=== PATIENT | male | born 1960 | race Caucasian/White ===

== ENCOUNTER 2020-07-10 13:20 | Day surgery (SDC) | payer OTHER ==
[2020-07-10] MEDS ORDERED: Sensorcaine 0.25% 10 ML IJ ONE (13:21)
[2020-07-10] MEDS ORDERED: Xylocaine 1% Vial 30 ML PF IJ ONE (13:21)
[2020-07-10] MEDS ORDERED: Ketamine HCl 50 MG/ML ONE (15:10)
[2020-07-10] MEDS ORDERED: DIPRIVAN 200 MG/20 ML IV ONE (15:10)
[2020-07-10] MEDS ORDERED: Lactated Ringers 1,000 ML IV ONE (15:16)
--- NOTE | 2020-07-10 16:23 | XRAY ---
Indication: Right lumbar sympathetic nerve block. Intraoperative fluoroscopy provided for 56 seconds. 4 digital spot images submitted for interpretation demonstrates right posterior needle with the tip projecting just anterior to mid lumbar spine, probably L2-L3. Small amount of contrast injected for needle tip placement. Correlate with intraoperative findings as reported.
--- NOTE | 2020-07-10 16:38 | XRAY ---
56 seconds of fluoroscopy was used in surgery for a right lumbar sympathetic nerve block.
== END 2020-07-10 15:42 | disposition home or self-care (01) ==
LOC: SDC-PAIN 13:20
PROVIDERS: ATTEND Psychiatry & Neurology Pain Medicine
DX: G90.521 Complex regional pain syndrome I of right lower limb (principal); Z79.899 Other long term (current) drug therapy
CPT/HCPCS: 64520; 72100; 77002; J2001; J2704; Q9966

== ENCOUNTER 2020-09-11 10:49 | Day surgery (SDC) | payer OTHER ==
[2020-09-11] MEDS ORDERED: Xylocaine 1% Vial 30 ML PF IJ ONE (10:50)
[2020-09-11] MEDS ORDERED: Sensorcaine 0.25% 10 ML IJ ONE (10:50)
--- NOTE | 2020-09-11 13:46 | XRAY ---
Indication: Right lumbar sympathetic nerve block. Intraoperative fluoroscopy provided for 46 seconds. 6 digital spot images submitted for interpretation demonstrates right posterior needle with the tip projecting just anterior to mid lumbar spine, probably L2-L3. Small amount of contrast injected for needle tip placement. Correlate with intraoperative findings/report.
--- NOTE | 2020-09-11 14:16 | XRAY ---
46 seconds of fluoroscopy was used in surgery for a right lumbar sympathetic nerve block.
[2020-09-11] MEDS ORDERED: Lactated Ringers 1,000 ML IV ONE (16:20)
== END 2020-09-11 13:47 | disposition home or self-care (01) ==
LOC: SDC-PAIN 10:49
PROVIDERS: ATTEND Psychiatry & Neurology Pain Medicine
DX: G90.521 Complex regional pain syndrome I of right lower limb (principal); M19.90 Unspecified osteoarthritis, unspecified site; C62.90 Malignant neoplasm of unspecified testis, unspecified whether descended or undescended; G57.60 Lesion of plantar nerve, unspecified lower limb; Z79.899 Other long term (current) drug therapy
CPT/HCPCS: 64520; 72100; 77002; 77003; J2001; Q9966

== ENCOUNTER 2021-06-12 13:45 | Day surgery (SDC) | payer OTHER ==
[2021-06-12] MEDS ORDERED: Xylocaine 1% Vial 30 ML PF IJ ONE (13:46)
[2021-06-12] MEDS ORDERED: Lactated Ringers 1,000 ML IV ONE (15:15)
[2021-06-12] MEDS ORDERED: DIPRIVAN 200 MG/20 ML IV ONE (15:46)
[2021-06-12] MEDS ORDERED: BACIGUENT 30 GM ONE (16:48)
--- NOTE | 2021-06-13 09:55 | XRAY ---
Indication: Spinal stimulator insertion. Intraoperative fluoroscopy provided for 3 minutes 38 seconds. 4 digital spot image submitted for interpretation demonstrates initial introducer needle tip posterior to L1. Ultimately 2 epidural leads inserted with the tip projecting T10-T11. Correlate with intraoperative findings/report.
--- NOTE | 2021-06-13 09:59 | XRAY ---
3 minutes and 38 seconds fluoroscopy time in surgery for spinal cord stimulator placement.
== END 2021-06-12 17:17 | disposition home or self-care (01) ==
LOC: SDC-PAIN 13:45
PROVIDERS: ATTEND Psychiatry & Neurology Pain Medicine
DX: G90.529 Complex regional pain syndrome I of unspecified lower limb (principal); Z79.899 Other long term (current) drug therapy
CPT/HCPCS: 63650; 72100; 77002; C1778; J2001; J2704; A9270-GY

== ENCOUNTER 2022-09-09 08:44 | Day surgery (SDC) | payer OTHER ==
[2022-09-09] MEDS ORDERED: LIDOCAINE HCL 2% 100 MG/5 ML IJ ONE (08:45)
[2022-09-09] MEDS ORDERED: DIPRIVAN 200 MG/20 ML IV ONE (10:31)
--- NOTE | 2022-09-09 11:50 | XRAY ---
Indication: Left C2-C4 MBB. Intraoperative fluoroscopy provided for 23 seconds. Single digital spot image submitted for interpretation demonstrates posterior needle tips projecting over the expected left C2-C4 nerve roots. Correlate with intraoperative findings/report.
[2022-09-09] MEDS ORDERED: Lactated Ringers 1,000 ML IV ONE (14:45)
--- NOTE | 2022-09-10 11:39 | XRAY ---
23 seconds of fluoroscopy was used in surgery for a C2-C4 MBB.
== END 2022-09-09 11:05 | disposition home or self-care (01) ==
LOC: SDC-PAIN 08:44
PROVIDERS: ATTEND Psychiatry & Neurology Pain Medicine
DX: M47.812 Spondylosis without myelopathy or radiculopathy, cervical region (principal); Z79.899 Other long term (current) drug therapy
CPT/HCPCS: 64490; 64491; 72040; 77002; J2704

== ENCOUNTER 2022-09-16 11:54 | Day surgery (SDC) | payer OTHER ==
[2022-09-16] MEDS ORDERED: LIDOCAINE HCL 2% 100 MG/5 ML IJ ONE (11:55)
[2022-09-16] MEDS ORDERED: DIPRIVAN 200 MG/20 ML IV ONE (13:39)
--- NOTE | 2022-09-16 14:53 | XRAY ---
Indication: Right C2-C4 MBB. Intraoperative fluoroscopy provided for 14 seconds. 2 digital spot image submitted for interpretation demonstrates posterior needle tips projecting over the expected right C2-C4 nerve roots. Correlate with intraoperative findings/report.
[2022-09-16] MEDS ORDERED: Lactated Ringers 1,000 ML IV ONE (15:21)
== END 2022-09-16 14:10 | disposition home or self-care (01) ==
LOC: SDC-PAIN 11:54
PROVIDERS: ATTEND Psychiatry & Neurology Pain Medicine
DX: M47.812 Spondylosis without myelopathy or radiculopathy, cervical region (principal); Z79.899 Other long term (current) drug therapy
CPT/HCPCS: 64490; 64491; 72040; 77002; J2704

== ENCOUNTER 2022-11-12 09:29 | Day surgery (SDC) | payer OTHER ==
[2022-11-12] MEDS ORDERED: BUPIVACAINE 0.5% VIAL IJ ONE (09:30)
[2022-11-12] MEDS ORDERED: DIPRIVAN 200 MG/20 ML IV ONE (11:49)
[2022-11-12] MEDS ORDERED: Lactated Ringers 1,000 ML IV ONE (12:30)
--- NOTE | 2022-11-12 13:21 | XRAY ---
14 seconds of fluoroscopy was used in surgery for right C2-C4 MBB.
== END 2022-11-12 12:15 | disposition home or self-care (01) ==
LOC: SDC-PAIN 09:29
PROVIDERS: ATTEND Psychiatry & Neurology Pain Medicine
DX: M47.812 Spondylosis without myelopathy or radiculopathy, cervical region (principal); Z79.899 Other long term (current) drug therapy
CPT/HCPCS: 64490; 64491; 72040; 77002; J2704

== ENCOUNTER 2022-12-10 10:06 | Day surgery (SDC) | payer OTHER ==
[2022-12-10] MEDS ORDERED: LIDOCAINE HCL 1% 50 MG/5 ML VL PF IJ ONE (10:07)
[2022-12-10] MEDS ORDERED: BUPIVACAINE 0.5% VIAL IJ ONE (10:07)
[2022-12-10] MEDS ORDERED: Decadron 4 MG INJ IV ONE (10:07)
[2022-12-10] MEDS ORDERED: DIPRIVAN 200 MG/20 ML IV ONE (11:30)
[2022-12-10] MEDS ORDERED: Lactated Ringers 1,000 ML IV ONE (11:57)
--- NOTE | 2022-12-10 14:01 | XRAY ---
Indication: Right C2-C4 RFA. Intraoperative fluoroscopy provided for 19 seconds. 2 digital spot image submitted for interpretation demonstrates posterior needle tips projecting over the expected right C2-C4 nerve roots. Correlate with intraoperative findings/report.
--- NOTE | 2022-12-10 14:43 | XRAY ---
19 seconds of fluoroscopy was used in surgery for a right C2-C4 RFA.
== END 2022-12-10 11:45 | disposition home or self-care (01) ==
LOC: SDC-PAIN 10:06
PROVIDERS: ATTEND Psychiatry & Neurology Pain Medicine
DX: M47.812 Spondylosis without myelopathy or radiculopathy, cervical region (principal); Z79.899 Other long term (current) drug therapy
CPT/HCPCS: 64633; 64634; 72040; 77002; J1100; J2001; J2704

== ENCOUNTER 2024-06-21 13:10 | Day surgery (SDC) | payer MEDICARE, OTHER ==
[2024-06-21] MEDS ORDERED: LIDOCAINE HCL 1% AMPUL 5 ML IJ ONE (13:11)
[2024-06-21] MEDS ORDERED: Sodium Chloride 0.9(Preservative Free) 10 ML IJ ONE (13:11)
[2024-06-21] MEDS ORDERED: Depo-Medrol 40 MG/ML IM ONE (13:11)
[2024-06-21] MEDS ORDERED: propofoL IV ONE (15:21)
--- NOTE | 2024-06-21 16:18 | XRAY ---
Indication: Lumbar MAYLIN. Intraoperative fluoroscopy provided for 32 seconds. 3 digital spot image submitted for interpretation demonstrates needle tip projecting posterior to lumbosacral junction. Small amount of contrast injected for needle tip placement. Correlate with intraoperative findings/report. Incidental incompletely visualized left epidural generator/leads.
--- NOTE | 2024-06-21 16:25 | XRAY ---
32 seconds of fluoroscopy was used in surgery for a lumbar MAYLIN.
== END 2024-06-21 16:30 | disposition home or self-care (01) ==
LOC: SDC-PAIN 13:10
PROVIDERS: ATTEND Psychiatry & Neurology Pain Medicine
DX: M54.16 Radiculopathy, lumbar region (principal)
CPT/HCPCS: 62323; 72100; 77003; J2704; Q9966

== ENCOUNTER 2024-08-03 11:50 | Day surgery (SDC) | payer MEDICARE, OTHER ==
[2024-08-03] MEDS ORDERED: LIDOCAINE HCL 2% 100 MG/5 ML IJ ONE (11:51)
[2024-08-03] MEDS ORDERED: propofoL IV ONE (13:51)
--- NOTE | 2024-08-03 19:27 | XRAY ---
9 seconds of fluoroscopy was used in surgery for a bilateral L4-S1 MBB.
--- NOTE | 2024-08-03 19:29 | XRAY ---
Indication: Bilateral L4-S1 MBB. Intraoperative fluoroscopy provided for 9 seconds. Single digital spot image submitted for interpretation demonstrates posterior needle tips projecting over expected left and right L4-S1 nerve roots. Correlate with intraoperative findings/report.
== END 2024-08-03 14:35 | disposition home or self-care (01) ==
LOC: SDC-PAIN 11:50
PROVIDERS: ATTEND Psychiatry & Neurology Pain Medicine
DX: M47.817 Spondylosis without myelopathy or radiculopathy, lumbosacral region (principal)
CPT/HCPCS: 64493; 64494; 72020; J2704

== ENCOUNTER 2025-02-07 11:59 | Day surgery (SDC) | payer MEDICARE, OTHER ==
[2025-02-07] MEDS ORDERED: BUPIVACAINE 0.5% VIAL IJ ONE (12:00)
[2025-02-07] MEDS ORDERED: propofoL IV ONE (14:48)
[2025-02-07] MEDS ORDERED: Lactated Ringers 1,000 ML IV ONE (15:43)
--- NOTE | 2025-02-07 17:03 | XRAY ---
Indication: Bilateral L4-S1 MBB. Intraoperative fluoroscopy provided for 10 seconds. Single digital spot image submitted for interpretation demonstrates posterior needle tips projecting over expected left and right L4-S1 nerve roots. Correlate with intraoperative findings/report. Incidental incompletely visualized epidural leads.
--- NOTE | 2025-02-07 17:10 | XRAY ---
10 seconds of fluoroscopy was used in surgery for a bilateral L4-S1 MBB.
== END 2025-02-07 15:25 | disposition home or self-care (01) ==
LOC: SDC-PAIN 11:59
PROVIDERS: ATTEND Psychiatry & Neurology Pain Medicine
DX: M47.817 Spondylosis without myelopathy or radiculopathy, lumbosacral region (principal)